=== PATIENT | male | born 1955 | race Caucasian/White ===

== ENCOUNTER 2020-11-12 22:08 | Inpatient (IN) | payer MEDICARE, OTHER, SELFPAY ==
[~2020-11-12 22:08] MED LIST: Iopamidol-370 76% 500 ML 1 ML ONE
[2020-11-12 22:23] LABS: #Eosinphils 0.1 thou/uL (0.0-0.7); #Lymphocytes 1.5 thou/uL (1.20-3.40); #Monocytes 0.6 thou/uL (0.11-0.59); %Basophils 0.3 % (0.0-1.0); %Eosinophils 0.4 % (0.0-10.0); %Lymphocytes 13.6 % (21.0-51.0); %Monocytes 5.6 % (0.0-10.0); Hemoglobin 10.8 g/dL (14.0-18.0); Mean Corpuscular HGB CONC 29.6 g/dL (32.0-36.0); Mean Corpuscular Hemoglobin 27.9 pg (27.0-31.0); Mean Corpuscular Volume 94.3 fL (78.0-98.0); Mean Platelet Volume 8.4 fL (7.4-10.4); Platelet Count 223 thou/uL (130-400); Red Blood Cell (RBC) Count 3.88 mill/uL (4.70-6.10); White Blood Cell (WBC) Count 11.2 thou/uL (4.8-10.8)
[2020-11-12] MEDS ORDERED: Fentanyl CADD 100 ML IV SCH (22:30)
[2020-11-12 22:46] LABS: ALT (SGPT) 413 U/L (8-55); AST (SGOT) 237 U/L (5-34); Albumin 2.9 g/dL (3.4-4.8); Alkaline Phosphatase 166 U/L (40-110); Anion Gap 14 mmol/L (10-20); BUN (Urea Nitrogen) 22 mg/dL (8.4-25.7); Bilirubin, Total 1.2 mg/dL (0.2-1.2); Calc. Creatinine Clearance 0 mL/min (70-130); Calcium 8.1 mg/dL (7.8-10.44); Carbon Dioxide 19 mmol/L (23-31); Chloride 110 mmol/L (98-107); Globulin 2.7 g/dL (2.4-3.5); Glucose 95 mg/dL (80-115); Potassium 4.4 mmol/L (3.5-5.1); Protein, Total 5.6 g/dL (5.8-8.1); Sodium 139 mmol/L (136-145)
[2020-11-12 22:47] LABS: Bacteria/HPF 4+ HPF (None Seen); Bilirubin Negative (Negative); Blood, Urine 2+ (Negative); Clarity Turbid (Clear); Glucose, Urine (Dipstick) Normal (Negative); Ketone, Urine Negative (Negative); Leukocyte 75 Leu/uL (Negative); Nitrite Negative (Negative); Protein, Urine (Dipstick) 20 mg/dL (Neg-Trace); Specific Gravity, Urine 1.017 (1.002-1.036); Squamous Epithelial 0-3 HPF (0-3); Urobilinogen Normal mg/dL (Less than 2); pH, Urine 5.5 (5.0-9.0)
[2020-11-12 22:52] LABS: INR-International Normal Ratio 2.3; PTT 33.1 sec (22.9-36.1); Prothrombin Time 25.2 sec (12.0-14.7)
[2020-11-12 23:40] LABS: CO2 Tension 23.8 mmHg (35.0-45.0); pH, Arterial 7.53 (7.35-7.45)
[2020-11-12 23:41] LABS: Actual Bicarbonate (HCO3a) 19.6 mEq/L (22-28); Base Excess (BEa) -1.9 mEq/L (-2.0 to +3.0); Carboxyhemoglobin (COHb) 0.2 gm% (0.0-3.0); Hemoglobin (Hb) 10.6 g/dL (14.0-18.0); O2 Tension (PaO2), arterial 560.3 mmHg (> 80.0); Potassium - ABG Lab 3.62 mmol/L (3.70-5.30)
[2020-11-12 23:42] LABS: Analyzer IN Cardio ER; Puncture Site LRA
[2020-11-12] MEDS ORDERED: Calcium Chloride 13.6 MEQ in Sodium Chloride 0.9% 100 ML IVPB SCH (23:45)
[2020-11-13 00:09] LABS: SARS-CoV-2 NAA Rapid Test Not Detected (NotDetected)
[2020-11-13] MEDS ORDERED: hydrALAZINE 20 MG/ML VIAL SLOW IVP PRN (01:00)
[2020-11-13] MEDS ORDERED: Dextrose 5% in Water 1,000 ML IV PRN (01:00)
[2020-11-13] MEDS ORDERED: Ondansetron PF 4 MG/2 ML Vial IVP PRN (01:00)
[2020-11-13] MEDS ORDERED: Hydrocortisone Sod Succ/PF 100 mg/2 ml Vial IVP SCH (01:00)
[2020-11-13] MEDS ORDERED: Ondansetron ODT 4 MG TAB PO PRN (01:00)
[2020-11-13] MEDS ORDERED: Ventilator Sedation Protocol 1 EACH FS SCH (01:00)
[2020-11-13] MEDS ORDERED: Sodium Chloride 0.9% 1,000 ML IV SCH ×2 (01:00→08:45)
[2020-11-13] MEDS ORDERED: Dextrose 50% Abboject 50 ML SYRINGE SLOW IVP PRN ×2 (01:00→23:59)
[2020-11-13] MEDS ORDERED: DISCONTINUE PREVIOUS NARCOTIC PAIN MEDICATIONS AND BENZODIAZEPINES FS SCH (01:15)
[2020-11-13] MEDS ORDERED: Propofol BOLUS 1,000 MG/100 ML VIAL IV PRN (01:15)
[2020-11-13] MEDS ORDERED: Propofol 1,000 MG/100 ML VIAL IV PRN (01:15)
[2020-11-13] MEDS ORDERED: Fentanyl CADD 100 ML IV SCH (01:15)
[2020-11-13] MEDS ORDERED: Morphine 2 MG/ML VIAL SLOW IVP PRN (01:15)
[2020-11-13] MEDS ORDERED: Fentanyl BOLUS 250 ML IVPB PRN (01:15)
[2020-11-13] MEDS ORDERED: Lorazepam 2 MG/ML VIAL SLOW IVP PRN (01:15)
[2020-11-13 01:18] LABS: Hemoglobin 10.3 g/dL (14.0-18.0)
[2020-11-13 01:35] LABS: Lactic Acid 3.4 mmol/L (0.5-2.2)
[2020-11-13 01:36] VITALS: BMI 14.6
[2020-11-13] MEDS ORDERED: Norepinephrine 8 MG/0.9% NS 250 ML ONE ×2 (02:59→23:15)
[2020-11-13 03:44] LABS: Actual Bicarbonate (HCO3a) 18.7 mEq/L (22-28); Base Excess (BEa) -5.7 mEq/L (-2.0 to +3.0); CO2 Tension 32.1 mmHg (35.0-45.0); Calcium, Ionized (arterial) 1.19 mmol/L (1.12-1.30); Carboxyhemoglobin (COHb) 0.3 gm% (0.0-3.0); Hemoglobin (Hb) 8.7 g/dL (14.0-18.0); O2 Tension (PaO2), arterial 219.1 mmHg (> 80.0); Potassium - ABG Lab 4.28 mmol/L (3.70-5.30); pH, Arterial 7.38 (7.35-7.45)
[2020-11-13 03:48] LABS: ALV-art Gradient 97.275 mmHg (0-20); Puncture Site LINE
[2020-11-13] MEDS ORDERED: Acetaminophen 650 MG/20.3 ML UDCUP PO PRN (05:09)
[2020-11-13] MEDS ORDERED: Lactated Ringer's 1,000 ML IV SCH ×3 (05:15→15:57)
[2020-11-13] MEDS ORDERED: Acetaminophen 650 MG/20.3 ML UDCUP PO SCH (05:30)
[2020-11-13] MEDS ORDERED: Phytonadione 5 MG TAB PO SCH (06:00)
[2020-11-13] MEDS: Hydrocortisone Sod Succ/PF 100 mg/2 ml Vial IVP SCH ×3 (06:04→18:09)
[2020-11-13 06:17] LABS: #Lymphocytes 0.9 thou/uL (1.20-3.40); #Monocytes 0.7 thou/uL (0.11-0.59); #Neutrophils 16.9 thou/uL (1.40-6.50); %Basophils 0.1 % (0.0-1.0); %Eosinophils 0.1 % (0.0-10.0); %Lymphocytes 4.6 % (21.0-51.0); %Monocytes 3.7 % (0.0-10.0); %Neutrophils 91.5 % (42.0-75.0); Hemoglobin 8.5 g/dL (14.0-18.0); Mean Corpuscular HGB CONC 32.5 g/dL (32.0-36.0); Mean Corpuscular Hemoglobin 30.6 pg (27.0-31.0); Mean Corpuscular Volume 94.2 fL (78.0-98.0); Mean Platelet Volume 8.4 fL (7.4-10.4); Platelet Count 236 thou/uL (130-400); RBC Distribution Width 13.9 % (11.5-14.5); Red Blood Cell (RBC) Count 2.77 mill/uL (4.70-6.10); White Blood Cell (WBC) Count 18.5 thou/uL (4.8-10.8)
[2020-11-13 06:28] LABS: INR-International Normal Ratio 2.3; PTT 39.8 sec (22.9-36.1); Prothrombin Time 25.2 sec (12.0-14.7)
[2020-11-13] MEDS ORDERED: HUM PROTHROMBIN CPLX(PCC)4FACT 1,000 UNIT, Human Prothrombin Complx(PCC) 500 UNIT in Ad... IV SCH (06:30)
[2020-11-13] MEDS ORDERED: Phytonadione 10 MG/ML AMP SLOW IVP SCH (06:30)
[2020-11-13 06:37] LABS: Lactic Acid 2.4 mmol/L (0.5-2.2)
[2020-11-13 06:42] LABS: Anion Gap 9 mmol/L (10-20); BUN (Urea Nitrogen) 21 mg/dL (8.4-25.7); Calc. Creatinine Clearance 34 mL/min (70-130); Calcium 8.3 mg/dL (7.8-10.44); Carbon Dioxide 18 mmol/L (23-31); Chloride 116 mmol/L (98-107); Glucose 129 mg/dL (80-115); Magnesium 1.8 mg/dL (1.6-2.6); Phosphorus 3.3 mg/dL (2.3-4.7); Potassium 4.4 mmol/L (3.5-5.1); Sodium 139 mmol/L (136-145)
[2020-11-13] MEDS: Norepinephrine 8 MG/0.9% NS 250 ML IVPB SCH ×3 (08:39→19:12)
[2020-11-13 08:41] LABS: Troponin I 2.252 ng/mL (< 0.028)
[2020-11-13 08:48] LABS: INR-International Normal Ratio 1.8
[2020-11-13] MEDS ORDERED: Ascorbic Acid 2,000 MG in Sodium Chloride 0.9% 50 ML IVPB SCH (09:00)
[2020-11-13] MEDS ORDERED: Famotidine/PF 20 mg/2ml Vial SLOW IVP SCH (09:00)
[2020-11-13] MEDS ORDERED: Iopamidol-370 76% 500 ML 1 ML ONE (09:09)
[2020-11-13] MEDS: Ascorbic Acid 500 mg Chewable Tablet PO SCH ×2 (11:32→21:59)
[2020-11-13] MEDS: Ferrous Sulfate 325 MG TAB PO SCH ×2 (11:32→22:00)
[2020-11-13] MEDS ORDERED: Acetaminophen 500 MG TAB PO PRN (11:36)
[2020-11-13] MEDS ORDERED: Magnesium 2 GM/50 ML 2 GM in Premix Bag 1 BAG IVPB SCH (11:45)
[2020-11-13] MEDS ORDERED: Fentanyl CADD 100 ML ONE (12:56)
[2020-11-13 13:55] LABS: Troponin I 2.302 ng/mL (< 0.028)
[2020-11-13] MEDS ORDERED: DOBUTamine 500 mg/250 ml 250 ML IVPB SCH (16:00)
[2020-11-13 18:58] LABS: Critical Call Chem Troponin I RESULT DECREASING; Troponin I 1.709 ng/mL (< 0.028)
[2020-11-13] MEDS ORDERED: Norepinephrine 4 MG/4 ML VIAL ONE (23:15)
[2020-11-14] MEDS ORDERED: Ondansetron PF 4 MG/2 ML Vial IVP PRN
[2020-11-14] MEDS ORDERED: Dextrose 5% in Water 1,000 ML IV PRN
[2020-11-14] MEDS ORDERED: Ondansetron ODT 4 MG TAB PO PRN
[2020-11-14] MEDS ORDERED: hydrALAZINE 20 MG/ML VIAL SLOW IVP PRN
[2020-11-14] MEDS ORDERED: Morphine 2 MG/ML VIAL SLOW IVP PRN ×2 (00:01→11:11)
[2020-11-14] MEDS ORDERED: Acetaminophen 500 MG TAB PO PRN (00:01)
[2020-11-14] MEDS ORDERED: Fentanyl BOLUS 250 ML IVPB PRN (00:01)
[2020-11-14] MEDS ORDERED: Fentanyl CADD 100 ML IV SCH (00:15)
[2020-11-14] MEDS ORDERED: DOBUTamine 500 mg/250 ml 250 ML IVPB SCH (00:15)
[2020-11-14] MEDS ORDERED: Lactated Ringer's 1,000 ML IV SCH (00:15)
[2020-11-14] MEDS ORDERED: Hydrocortisone Sod Succ/PF 100 mg/2 ml Vial IVP SCH ×2 (00:45→06:00)
[2020-11-14] MEDS: Norepinephrine 8 MG/0.9% NS 250 ML IVPB SCH ×3 (00:50→10:30)
[2020-11-14 04:18] LABS: #Basophils 0.1 thou/uL (0.0-0.2); #Lymphocytes 0.7 thou/uL (1.20-3.40); #Monocytes 0.5 thou/uL (0.11-0.59); %Basophils 0.5 % (0.0-1.0); %Eosinophils 0.2 % (0.0-10.0); %Lymphocytes 6.8 % (21.0-51.0); %Monocytes 5.2 % (0.0-10.0); %Neutrophils 87.2 % (42.0-75.0); Hemoglobin 8.4 g/dL (14.0-18.0); Mean Corpuscular HGB CONC 33.2 g/dL (32.0-36.0); Mean Corpuscular Hemoglobin 31.4 pg (27.0-31.0); Mean Corpuscular Volume 94.5 fL (78.0-98.0); Mean Platelet Volume 8.8 fL (7.4-10.4); Platelet Count 156 thou/uL (130-400); RBC Distribution Width 14.2 % (11.5-14.5); Red Blood Cell (RBC) Count 2.68 mill/uL (4.70-6.10); White Blood Cell (WBC) Count 10.4 thou/uL (4.8-10.8)
[2020-11-14 04:35] LABS: Anion Gap 13 mmol/L (10-20); BUN (Urea Nitrogen) 22 mg/dL (8.4-25.7); Calc. Creatinine Clearance 40 mL/min (70-130); Calcium 7.6 mg/dL (7.8-10.44); Carbon Dioxide 16 mmol/L (23-31); Chloride 115 mmol/L (98-107); Glucose 153 mg/dL (80-115); Magnesium 2.3 mg/dL (1.6-2.6); Potassium 4.2 mmol/L (3.5-5.1); Sodium 140 mmol/L (136-145)
[2020-11-14 05:40] VITALS: TEMP 98.3
[2020-11-14 08:58] VITALS: BP 77/34
[2020-11-14] MEDS ORDERED: Ferrous Sulfate 325 MG TAB PO SCH (09:00)
[2020-11-14] MEDS ORDERED: Ascorbic Acid 500 mg Chewable Tablet PO SCH (09:00)
[2020-11-14] MEDS ORDERED: Famotidine/PF 20 mg/2ml Vial SLOW IVP SCH ×2 (09:00)
[2020-11-14] MEDS ORDERED: Lorazepam 2 MG/ML VIAL SLOW IVP PRN (11:09)
[2020-11-14] MEDS ORDERED: Morphine 4 MG/ML VIAL SLOW IVP PRN (12:11)
== END 2020-11-14 17:12 | disposition expired | DRG 963 ==
LOC: ERS 22:08 → UNDOADMIN 23:16 → CCU 23:16 → UNDODISIN 11-13 20:32 → CCU 11-13 23:03
PROVIDERS: ADMIT Surgery; ATTEND Surgery
PROC: 5A1945Z Respiratory Ventilation, 24-96 Consecutive Hours (ICD-10-PCS; principal; 2020-11-13)
PROC: 0HQ0XZZ Repair Scalp Skin, External Approach (ICD-10-PCS; 2020-11-13)
PROC: 04HY32Z Insertion of Monitoring Device into Lower Artery, Percutaneous Approach (ICD-10-PCS; 2020-11-13)
PROC: 0W9930Z Drainage of Right Pleural Cavity with Drainage Device, Percutaneous Approach (ICD-10-PCS; 2020-11-13)
PROC: 3E043XZ Introduction of Vasopressor into Central Vein, Percutaneous Approach (ICD-10-PCS; 2020-11-13)
PROC: 30283B1 Transfusion of Nonautologous 4-Factor Prothrombin Complex Concentrate into Vein, Percutaneous Approach (ICD-10-PCS; 2020-11-13)
PROC: 0D9670Z Drainage of Stomach with Drainage Device, Via Natural or Artificial Opening (ICD-10-PCS; 2020-11-13)
PROC: 05H533Z Insertion of Infusion Device into Right Subclavian Vein, Percutaneous Approach (ICD-10-PCS; 2020-11-13)
DX: J96.02 Acute respiratory failure with hypercapnia; S27.0XXA Traumatic pneumothorax, initial encounter; S12.100A Unspecified displaced fracture of second cervical vertebra, initial encounter for closed fracture; S22.21XA Fracture of manubrium, initial encounter for closed fracture; S22.081A Stable burst fracture of T11-T12 vertebra, initial encounter for closed fracture; S22.43XA Multiple fractures of ribs, bilateral, initial encounter for closed fracture; I42.8 Other cardiomyopathies; S26.99XA Other injury of heart, unspecified with or without hemopericardium, initial encounter; Z66 Do not resuscitate; Z51.5 Encounter for palliative care; Z20.822 Contact with and (suspected) exposure to COVID-19; S42.002A Fracture of unspecified part of left clavicle, initial encounter for closed fracture; S08.0XXA Avulsion of scalp, initial encounter; I48.91 Unspecified atrial fibrillation; R40.2312 Coma scale, best motor response, none, at arrival to emergency department; R40.2112 Coma scale, eyes open, never, at arrival to emergency department; R40.2212 Coma scale, best verbal response, none, at arrival to emergency department; R57.0 Cardiogenic shock; V43.52XA Car driver injured in collision with other type car in traffic accident, initial encounter; Y92.410 Unspecified street and highway as the place of occurrence of the external cause; Z78.1 Physical restraint status; Z88.0 Allergy status to penicillin; Z23 Encounter for immunization; F17.290 Nicotine dependence, other tobacco product, uncomplicated
CPT/HCPCS: 0240U; 32554; 36415; 36416; 36600; 51702; 70450; 70470; 70486; 70498; 71045; 71260; 72125; 72170; 74177; 80048; 81015; 82533; 82805; 83605; 83735; 84100; 84484; 85014; 85018; 85025; 85610; 85730; 86850; 86870; 86900; 86901; 90471; 93005; 93010; 93306; 94002; 94003; 94640; 96365; G0390; J1250; J1720; J2270; J3010; J3411; J3430; J3475; J3490; J7050; J7120; J7168; J7620; P9045; Q9967; S0028